=== PATIENT | male | born 1950 | race Asian ===

== ENCOUNTER 2020-09-22 06:03 | Day surgery (SDC) | payer MEDICARE ==
[~2020-09-22] VITALS: Ht 167.6 cm; Wt 64.0 kg
[2020-09-22] MEDS ORDERED: LACTATED RINGERS 1,000 ML IV SCH (07:00)
[2020-09-22] MEDS ORDERED: CHLORHEXIDINE 15 ML UDC PO ONE (07:00)
[2020-09-22 07:08] VITALS: BP 133/74
[2020-09-22] MEDS ORDERED: PIOG45TA64 PO (07:25)
[2020-09-22] MEDS ORDERED: LOSA100T14 PO (07:25)
[2020-09-22] MEDS ORDERED: TRAMADOL PO (07:25)
[2020-09-22] MEDS ORDERED: ASPI81TA45 PO (07:25)
[2020-09-22] MEDS ORDERED: [UNRECOGNIZED DRUG - CODE] INH (07:25)
[2020-09-22] MEDS ORDERED: OMEP-110 PO (07:25)
[2020-09-22] MEDS ORDERED: METFORMIN PO (07:25)
[2020-09-22] MEDS ORDERED: ATORVASTATIN PO (07:25)
[2020-09-22] MEDS ORDERED: ZOLP-413 PO (07:25)
[2020-09-22] MEDS ORDERED: REPA2TAB7 PO (07:25)
[2020-09-22 07:28] LABS: ALANINE AMINOTRANSFERASE 26 U/L (12-78); ALBUMIN 2.9 g/dL (3.4-5.0); ANION GAP 5 mmol/L (5-15); CALCIUM 8.1 mg/dL (8.5-10.1); CHLORIDE 107 mmol/L (98-107); CREATININE 0.88 mg/dL (0.7-1.3)
[2020-09-22] MEDS ORDERED: FENTANYL PF 100 MCG/2ML IV PRN (07:30)
[2020-09-22] MEDS ORDERED: ONDANSETRON 2MG/ML, 2ML IVPush PRN (07:30)
[2020-09-22] MEDS ORDERED: ACETAMINOPHEN 325 MG TABLET PO PRN (07:30)
[2020-09-22 07:31] LABS: ALKALINE PHOSPHATASE 106 U/L (45-117); BILIRUBIN,TOTAL 0.4 mg/dL (0.2-1.0); TOTAL PROTEIN 6.9 g/dL (6.4-8.2)
[2020-09-22] MEDS ORDERED: PROPOFOL 50 ML ONE ×2 (07:35→08:27)
== END 2020-09-22 10:42 | disposition home or self-care (01) ==
LOC: OUT 06:03
PROVIDERS: ATTEND Internal Medicine Geriatric Medicine
DX: R93.5 Abnormal findings on diagnostic imaging of other abdominal regions, including retroperitoneum (principal); C25.9 Malignant neoplasm of pancreas, unspecified; K29.50 Unspecified chronic gastritis without bleeding; E11.9 Type 2 diabetes mellitus without complications; E78.5 Hyperlipidemia, unspecified; I10 Essential (primary) hypertension; I25.10 Atherosclerotic heart disease of native coronary artery without angina pectoris; J44.9 Chronic obstructive pulmonary disease, unspecified; Z20.822 Contact with and (suspected) exposure to COVID-19; Z79.899 Other long term (current) drug therapy
CPT/HCPCS: 43239; 43242; 80053; 82962; 87635; 88172; 88173; 88177; 88305; 88307; 93005; J2704; J7120